=== PATIENT | female | born 1955 | race Caucasian/White ===

== ENCOUNTER 2020-12-14 16:34 | Emergency (ER) | payer SELFPAY ==
[~2020-12-14] VITALS: Ht 160 cm; Wt 66.0 kg
[2020-12-14] MEDS ORDERED: SODIUM CHLORIDE 0.9% 1,000 ML IV ONE (17:15)
[2020-12-14 17:28] LABS: EOSINOPHILS % 6.8 % (0.0-5.0); HEMATOCRIT. 38.6 % (36.0-48.0); HEMOGLOBIN. 12.5 g/dL (12.0-16.0); LYMPHOCYTES % 33.2 % (20.0-50.0); MEAN CORPUSCULAR HEMOGLOBIN 27.6 pg (28.0-32.0); MEAN CORPUSCULAR VOLUME 84.9 fL (81.0-99.0); MEAN PLATELET VOLUME 7.4 fl (7.4-10.4); MONOCYTES % 8.1 % (2.0-8.0); NEUTROPHILS % 50.9 % (40.0-76.0); PLATELET 326 x1000/uL (130-400); RED BLOOD CELL COUNT 4.54 mill/uL (4.2-5.4)
[2020-12-14 17:29] LABS: CHLORIDE 111 mEq/L (98-107)
[2020-12-14 17:37] LABS: CLARITY URINE CLEAR (CLEAR); KETONES URINE NEGATIVE (NEGATIVE); LEUKOCYTE ESTERASE URINE NEGATIVE (NEGATIVE); NITRITE URINE NEGATIVE (NEGATIVE); OCCULT BLOOD URINE TRACE (NEGATIVE); PH URINE 6.5 (4.5-8.0); PROTEIN URINE NEGATIVE (NEGATIVE); SPECIFIC GRAVITY URINE 1.002 (1.005-1.030); UROBILINOGEN URINE 0.2 E.U./dL (0.2-1.0)
[2020-12-14 17:40] LABS: COLOR URINE PALE YELLOW (YELLOW)
[2020-12-14 17:47] LABS: BETA HYDROXYBUTYRATE < 0.1 mMol/L (0.0-0.3)
[2020-12-14 21:56] VITALS: BP 148/62
== END 2020-12-14 21:57 | disposition home or self-care (01) ==
LOC: ER 16:34
DX: R42 Dizziness and giddiness (principal); F17.200 Nicotine dependence, unspecified, uncomplicated; J45.909 Unspecified asthma, uncomplicated; Z91.19 Patient's noncompliance with other medical treatment and regimen
CPT/HCPCS: 36415; 70450; 71045; 80053; 81003; 82010; 83735; 83880; 84443; 84484; 85025; 93005; 96360; 99285; J7030; Z7610

== ENCOUNTER 2021-02-08 08:17 | Emergency (ER) | payer MEDICARE, MEDICAID ==
[~2021-02-08] VITALS: Ht 167.6 cm; Wt 50.0 kg
[2021-02-08 10:52] LABS: CHLORIDE 110 mEq/L (98-107)
[2021-02-08 13:36] VITALS: BP 115/66
== END 2021-02-08 14:23 | disposition home or self-care (01) ==
LOC: ER 08:36
DX: R07.89 Other chest pain (principal); M25.512 Pain in left shoulder; M79.602 Pain in left arm; R55 Syncope and collapse; R53.1 Weakness; Z59.0 Homelessness; W18.39XA Other fall on same level, initial encounter; Y93.89 Activity, other specified; Y92.89 Other specified places as the place of occurrence of the external cause; Y99.8 Other external cause status
CPT/HCPCS: 36415; 71045; 73030; 80048; 84484; 86850; 86900; 93005; 99285